=== PATIENT | female | born 1935 | race Caucasian/White ===

== ENCOUNTER 2020-08-16 12:37 | Observation (INO) | payer MEDICARE, BC ==
[2020-08-16 13:24] LABS: #Monocytes 1.1 10x3/uL (0.0-1.1); #Neutrophils 7.4 10x3/uL (1.5-8.4); %Basophils 0.1 % (0.0-2.0); %Eosinophils 0.2 % (0.0-6.0); %Monocytes 11.7 % (0.0-10.0); %Neutrophils 78.4 % (40.0-75.0); Hemoglobin 8.4 g/dL (12.0-15.5); Mean Corpuscular HGB CONC 30.9 g/dL (32.0-36.0); Mean Corpuscular Hemoglobin 24.2 pg (27.0-33.0); Mean Corpuscular Volume 78.4 fl (81.6-98.3); Platelet Count 335 10x3/uL (150-450); RBC Distribution Width 15.9 % (11.5-14.5); Red Blood Cell (RBC) Count 3.47 10x6/uL (3.90-5.03); White Blood Cell (WBC) Count 9.5 10x3/uL (3.5-10.5)
[2020-08-16 13:37] LABS: ALT (SGPT) 35 U/L (8-55); AST (SGOT) 13 U/L (5-34); Albumin 3.7 g/dL (3.4-4.8); Alkaline Phosphatase 100 U/L (40-110); Anion Gap 15 mmol/L (10-20); BUN (Urea Nitrogen) 34 mg/dL (9.8-20.1); Bilirubin, Total 0.5 mg/dL (0.2-1.2); CK (CPK) 37 U/L (29-168); Calc. Creatinine Clearance 0 mL/min (70-130); Calcium 8.5 mg/dL (7.8-10.44); Carbon Dioxide 22 mmol/L (23-31); Chloride 102 mmol/L (98-107); Globulin 2.4 g/dL (2.4-3.5); Glucose 137 mg/dL (83-110); Potassium 4.5 mmol/L (3.5-5.1); Protein, Total 6.1 g/dL (5.8-8.1); Sodium 134 mmol/L (136-145)
[2020-08-16] MEDS ORDERED: Nitroglycerin 2% Ointment 1 INCH/1 GM Packet ONE (13:45)
[2020-08-16] MEDS ORDERED: Aspirin Chewable 81 MG TAB ONE (13:45)
[2020-08-16 14:00] LABS: CKMB 1.5 ng/mL (0-6.6)
[2020-08-16 15:10] LABS: Bilirubin Neg (Negative); Blood, Urine Negative (Negative); Clarity Slightly Cloudy (Clear); Glucose, Urine (Dipstick) Normal (Negative); Ketone, Urine Negative (Negative); Leukocyte 25 (Negative); Nitrite Negative (Negative); Protein, Urine (Dipstick) Negative (Neg-Trace); Specific Gravity, Urine 1.005 (1.002-1.036); Urobilinogen Normal mg/dL (Less than 2)
[2020-08-16 15:23] LABS: RBC/HPF 0-3 HPF (0-3)
[2020-08-16 15:25] LABS: Bacteria/HPF 3+ HPF (None Seen); Squamous Epithelial 0-3 HPF (0-3); WBC/HPF 0-3 HPF (0-3)
[2020-08-16 16:52] LABS: Troponin I 0.027 ng/mL (< 0.028)
[2020-08-16] MEDS ORDERED: Furosemide 20 MG/2 ML VIAL SLOW IVP SCH (18:30)
[2020-08-16] MEDS ORDERED: Dextrose 5% in Water 1,000 ML IV PRN (18:39)
[2020-08-16] MEDS ORDERED: Dextrose 50% Abboject 50 ML SYRINGE SLOW IVP PRN (18:39)
[2020-08-16] MEDS ORDERED: HumaLOG 300 UNITS/3 ML VIAL SC PRN (18:39)
[2020-08-16] MEDS ORDERED: Furosemide 40 MG/4 ML VIAL ONE (18:42)
[2020-08-16 19:31] LABS: Troponin I 0.027 ng/mL (< 0.028)
[2020-08-16] MEDS: Apixaban 5 MG TAB PO SCH (20:58)
[2020-08-17 05:33] LABS: Iron 14 ug/dL (50-170); Iron Binding Capacity, Total 359 mcg/dL (265-497)
[2020-08-17 05:34] LABS: ALT (SGPT) 27 U/L (8-55); AST (SGOT) 12 U/L (5-34); Albumin 3.4 g/dL (3.4-4.8); Alkaline Phosphatase 89 U/L (40-110); Anion Gap 13 mmol/L (10-20); BUN (Urea Nitrogen) 25 mg/dL (9.8-20.1); Bilirubin, Total 0.5 mg/dL (0.2-1.2); Calc. Creatinine Clearance 46 mL/min (70-130); Calcium 8.3 mg/dL (7.8-10.44); Carbon Dioxide 23 mmol/L (23-31); Chloride 103 mmol/L (98-107); Globulin 2.3 g/dL (2.4-3.5); Glucose 99 mg/dL (83-110); Iron Binding Capacity, Total 365 mcg/dL (265-497); Magnesium 2.3 mg/dL (1.6-2.6); Potassium 4.1 mmol/L (3.5-5.1); Protein, Total 5.7 g/dL (5.8-8.1); Sodium 135 mmol/L (136-145)
[2020-08-17 05:51] LABS: #Eosinphils 0.1 10x3/uL (0.0-0.5); #Monocytes 0.9 10x3/uL (0.0-1.1); #Neutrophils 6.3 10x3/uL (1.5-8.4); %Eosinophils 0.6 % (0.0-6.0); %Neutrophils 75.8 % (40.0-75.0); Ferritin 43.95 ng/mL (10-291); Hemoglobin 7.8 g/dL (12.0-15.5); Mean Corpuscular Volume 77.5 fl (81.6-98.3); Mean Platelet Volume 10.6 fl (7.4-10.4); Platelet Count 314 10x3/uL (150-450); RBC Distribution Width 15.9 % (11.5-14.5); Red Blood Cell (RBC) Count 3.25 10x6/uL (3.90-5.03); Thyroid Stimulating Hormone 0.8375 uIU/mL (0.35-4.94); White Blood Cell (WBC) Count 8.4 10x3/uL (3.5-10.5)
[2020-08-17] MEDS: Furosemide 40 MG/4 ML VIAL SLOW IVP SCH ×2 (05:52→15:15)
[2020-08-17] MEDS ORDERED: ICOSAPENT ETHYL 1 GM PO SCH (09:00)
[2020-08-17] MEDS: Aspirin 81 mg Enteric Coated Tablet PO SCH (09:43)
[2020-08-17] MEDS: Cholecalciferol (Vitamin D3) 400 UNITS TAB PO SCH (09:43)
[2020-08-17] MEDS: Amiodarone 200 MG TAB PO SCH ×2 (09:43→20:22)
[2020-08-17] MEDS: Carvedilol 12.5 MG TAB PO SCH ×2 (09:43→20:22)
[2020-08-17] MEDS: Apixaban 5 MG TAB PO SCH ×2 (09:45→20:22)
[2020-08-17] MEDS: Thyroid 60 MG TAB PO SCH (09:45)
[2020-08-17 12:57] LABS: SARS-CoV-2 PCR by NAA Not Detected (NotDetected)
[2020-08-17] MEDS: Pregabalin 75 MG CAP PO SCH (15:15)
[2020-08-17] MEDS ORDERED: Atorvastatin Calcium 10 MG TAB PO SCH (21:00)
[2020-08-18] MEDS: Pregabalin 75 MG CAP PO SCH (00:57)
[2020-08-18 03:47] VITALS: BMI 22.7
[2020-08-18 04:08] VITALS: TEMP 98.2
[2020-08-18] MEDS: Furosemide 40 MG/4 ML VIAL SLOW IVP SCH (05:32)
[2020-08-18 06:05] LABS: #Eosinphils 0.1 10x3/uL (0.0-0.5); #Neutrophils 6.4 10x3/uL (1.5-8.4); %Basophils 0.2 % (0.0-2.0); %Eosinophils 0.9 % (0.0-6.0); %Lymphocytes 12.7 % (18.0-47.0); %Monocytes 11.6 % (0.0-10.0); Hemoglobin 9.1 g/dL (12.0-15.5); Mean Corpuscular Hemoglobin 23.5 pg (27.0-33.0); Mean Corpuscular Volume 78.1 fl (81.6-98.3); Mean Platelet Volume 10.3 fl (7.4-10.4); Platelet Count 359 10x3/uL (150-450); Red Blood Cell (RBC) Count 3.88 10x6/uL (3.90-5.03); White Blood Cell (WBC) Count 8.7 10x3/uL (3.5-10.5)
[2020-08-18 06:22] LABS: ALT (SGPT) 27 U/L (8-55); AST (SGOT) 15 U/L (5-34); Albumin 3.6 g/dL (3.4-4.8); Alkaline Phosphatase 95 U/L (40-110); Anion Gap 14 mmol/L (10-20); BUN (Urea Nitrogen) 22 mg/dL (9.8-20.1); Bilirubin, Total 0.7 mg/dL (0.2-1.2); Calc. Creatinine Clearance 48 mL/min (70-130); Calcium 8.8 mg/dL (7.8-10.44); Carbon Dioxide 24 mmol/L (23-31); Chloride 101 mmol/L (98-107); Globulin 2.6 g/dL (2.4-3.5); Glucose 119 mg/dL (83-110); Potassium 3.6 mmol/L (3.5-5.1); Protein, Total 6.2 g/dL (5.8-8.1); Sodium 135 mmol/L (136-145)
[2020-08-18] MEDS: Amiodarone 200 MG TAB PO SCH (10:07)
[2020-08-18] MEDS: Thyroid 60 MG TAB PO SCH (10:07)
[2020-08-18] MEDS: Carvedilol 12.5 MG TAB PO SCH (10:08)
[2020-08-18] MEDS: Cholecalciferol (Vitamin D3) 400 UNITS TAB PO SCH (10:08)
[2020-08-18] MEDS: Aspirin 81 mg Enteric Coated Tablet PO SCH (10:08)
[2020-08-18] MEDS: Apixaban 5 MG TAB PO SCH (10:08)
[2020-08-18 11:30] VITALS: BP 102/45
[2020-08-18] MEDS ORDERED: Furosemide 20 MG TAB PO SCH (14:00)
== END 2020-08-18 14:15 | disposition home or self-care (01) ==
LOC: CSHERS 12:37 → CSHTELE 20:16
PROVIDERS: ADMIT Family Medicine; ATTEND Family Medicine
DX: I11.0 Hypertensive heart disease with heart failure (principal); I50.33 Acute on chronic diastolic (congestive) heart failure; I48.0 Paroxysmal atrial fibrillation; I35.0 Nonrheumatic aortic (valve) stenosis; Z79.899 Other long term (current) drug therapy; Z79.82 Long term (current) use of aspirin; E11.9 Type 2 diabetes mellitus without complications; Z20.822 Contact with and (suspected) exposure to COVID-19
CPT/HCPCS: 71045; 71275; 80053 ×2; 82550; 82553; 82728; 82962 ×3; 83540; 83550; 83605; 83735; 83880; 84484 ×2; 85025 ×2; 85379; 93005; 94760; 96374; 96376 ×2; 97116 ×2; 97139; 97530; 99285; G0378 ×4; U0003; U0005; 36415; 36416; 81003; 81015; 82270; 84443; 87635; J1815; J1940; J7620

== ENCOUNTER 2020-08-26 19:17 | Inpatient (IN) | payer MEDICARE, BC ==
[2020-08-26 20:26] LABS: #Eosinphils 0.1 10x3/uL (0.0-0.5); #Monocytes 0.7 10x3/uL (0.0-1.1); #Neutrophils 6.1 10x3/uL (1.5-8.4); %Basophils 0.4 % (0.0-2.0); %Eosinophils 1.5 % (0.0-6.0); %Lymphocytes 13.6 % (18.0-47.0); %Neutrophils 75.8 % (40.0-75.0); Hemoglobin 8.6 g/dL (12.0-15.5); Mean Corpuscular HGB CONC 29.6 g/dL (32.0-36.0); Mean Corpuscular Hemoglobin 23.1 pg (27.0-33.0); Mean Platelet Volume 11.2 fl (7.4-10.4); Platelet Count 220 10x3/uL (150-450); RBC Distribution Width 15.9 % (11.5-14.5); Red Blood Cell (RBC) Count 3.73 10x6/uL (3.90-5.03); White Blood Cell (WBC) Count 8.1 10x3/uL (3.5-10.5)
[2020-08-26 20:41] LABS: ALT (SGPT) 31 U/L (8-55); AST (SGOT) 15 U/L (5-34); Albumin 3.6 g/dL (3.4-4.8); Alkaline Phosphatase 141 U/L (40-110); Anion Gap 16 mmol/L (10-20); BUN (Urea Nitrogen) 45 mg/dL (9.8-20.1); Bilirubin, Total 0.4 mg/dL (0.2-1.2); Calc. Creatinine Clearance 0 mL/min (70-130); Calcium 8.5 mg/dL (7.8-10.44); Carbon Dioxide 20 mmol/L (23-31); Chloride 98 mmol/L (98-107); Globulin 2.5 g/dL (2.4-3.5); Glucose 180 mg/dL (83-110); Potassium 5.6 mmol/L (3.5-5.1); Protein, Total 6.1 g/dL (5.8-8.1); Sodium 128 mmol/L (136-145)
[2020-08-26] MEDS ORDERED: Furosemide 40 MG/4 ML VIAL ONE (21:35)
[2020-08-26] MEDS ORDERED: Senokot S 8.6-50 MG TAB PO PRN (22:29)
[2020-08-26] MEDS ORDERED: Dextrose 5% in Water 1,000 ML IV PRN (22:29)
[2020-08-26] MEDS ORDERED: Guaifenesin DM 100-10/5 ML UDCUP PO PRN (22:29)
[2020-08-26] MEDS ORDERED: Calcium Carbonate 500 MG ChewTAB PO PRN (22:29)
[2020-08-26] MEDS ORDERED: HumaLOG 300 UNITS/3 ML VIAL SC PRN (22:29)
[2020-08-26] MEDS ORDERED: Acetaminophen 325 MG TAB PO PRN (22:29)
[2020-08-26] MEDS ORDERED: Dextrose 50% Abboject 50 ML SYRINGE SLOW IVP PRN (22:29)
[2020-08-27] MEDS ORDERED: Carvedilol 3.125 MG TAB PO SCH (01:00)
[2020-08-27] MEDS ORDERED: Amiodarone 200 MG TAB PO SCH (01:00)
[2020-08-27 01:03] VITALS: BMI 21.9
[2020-08-27 01:46] LABS: Bilirubin Neg (Negative); Blood, Urine Negative (Negative); Clarity Clear (Clear); Glucose, Urine (Dipstick) Normal (Negative); Ketone, Urine Negative (Negative); Leukocyte Negative (Negative); Nitrite Negative (Negative); Protein, Urine (Dipstick) Negative (Neg-Trace); Specific Gravity, Urine 1.005 (1.002-1.036); Urobilinogen Normal mg/dL (Less than 2)
[2020-08-27] MEDS: Enoxaparin Sodium 60 MG/0.6 ML SYRINGE SC SCH ×2 (01:47→14:19)
[2020-08-27 01:51] LABS: Urine Culture Reflex No No
[2020-08-27 01:55] LABS: Bacteria/HPF 1+ HPF (None Seen); RBC/HPF 0-3 HPF (0-3); Squamous Epithelial 0-3 HPF (0-3); WBC/HPF 0-3 HPF (0-3)
[2020-08-27 06:19] LABS: Anion Gap 15 mmol/L (10-20); BUN (Urea Nitrogen) 38 mg/dL (9.8-20.1); Calc. Creatinine Clearance 39 mL/min (70-130); Calcium 8.7 mg/dL (7.8-10.44); Carbon Dioxide 27 mmol/L (23-31); Chloride 100 mmol/L (98-107); Glucose 105 mg/dL (83-110); Hemoglobin 8.1 g/dL (12.0-15.5); Iron 15 ug/dL (50-170); Iron Binding Capacity, Total 400 mcg/dL (265-497); Mean Corpuscular HGB CONC 30.2 g/dL (32.0-36.0); Mean Corpuscular Hemoglobin 22.9 pg (27.0-33.0); Mean Corpuscular Volume 75.7 fl (81.6-98.3); Mean Platelet Volume 11.4 fl (7.4-10.4); Platelet Count 198 10x3/uL (150-450); Potassium 4.3 mmol/L (3.5-5.1); Red Blood Cell (RBC) Count 3.54 10x6/uL (3.90-5.03); Sodium 138 mmol/L (136-145); White Blood Cell (WBC) Count 5.9 10x3/uL (3.5-10.5)
[2020-08-27 06:50] LABS: Band 1 % (5-11); Eosinophils 2 % (0-10); Lymphocytes 15 % (21-51); Monocytes 4 % (0-10); Neutrophil 77 % (42-75); Reactive Lymphocytes 1 % (0-10)
[2020-08-27 06:51] LABS: Elliptocytes SLIGHT = 2-5 cells (100X) (0-1/hpf); Hypochromia SLIGHT = 6-15 cells (100X) (0-5/hpf); MDiff Complete? YES; Platelet Morphology Comment Appears Adequate; Thyroid Stimulating Hormone 2.9021 uIU/mL (0.35-4.94)
[2020-08-27 06:52] LABS: Anisocytosis SLIGHT = 6-15 cells (100X) (0-5/hpf); Tear Drops SLIGHT = 2-5 cells (100X) (0-1/hpf)
[2020-08-27] MEDS: Amiodarone 200 MG TAB PO SCH ×2 (08:20→20:55)
[2020-08-27] MEDS: Thyroid 60 MG TAB PO SCH (08:20)
[2020-08-27] MEDS: Pregabalin 75 MG CAP PO SCH ×2 (08:20→20:51)
[2020-08-27] MEDS: Carvedilol 12.5 MG TAB PO SCH ×2 (08:21→20:54)
[2020-08-27] MEDS: Magnesium Oxide 400 MG TAB PO SCH (08:21)
[2020-08-27] MEDS: Multivitamin W/ Minerals 1 TAB PO SCH (08:21)
[2020-08-27] MEDS: Cholecalciferol (Vitamin D3) 400 UNITS TAB PO SCH (08:21)
[2020-08-27] MEDS: Furosemide 20 MG/2 ML VIAL SLOW IVP SCH (08:21)
[2020-08-27] MEDS: Aspirin 81 mg Enteric Coated Tablet PO SCH (08:21)
[2020-08-27] MEDS ORDERED: Apixaban 5 MG TAB PO SCH (09:00)
[2020-08-27] MEDS ORDERED: Icosapent Ethyl [Vascepa] 1 GM Capsule PO SCH (09:00)
[2020-08-27 09:34] LABS: Ferritin 40.19 ng/mL (10-291)
[2020-08-27] MEDS ORDERED: Communication Order-Pharmacy FS SCH (10:15)
[2020-08-27 13:50] LABS: SARS-CoV-2 PCR by NAA Not Detected (NotDetected)
[2020-08-27] MEDS: Atorvastatin Calcium 10 MG TAB PO SCH (20:54)
[2020-08-28 06:16] LABS: ALT (SGPT) 25 U/L (8-55); AST (SGOT) 12 U/L (5-34); Albumin 3.2 g/dL (3.4-4.8); Alkaline Phosphatase 115 U/L (40-110); Anion Gap 12 mmol/L (10-20); BUN (Urea Nitrogen) 37 mg/dL (9.8-20.1); Bilirubin, Total 0.4 mg/dL (0.2-1.2); Calc. Creatinine Clearance 42 mL/min (70-130); Calcium 8.5 mg/dL (7.8-10.44); Carbon Dioxide 27 mmol/L (23-31); Chloride 102 mmol/L (98-107); Globulin 2.6 g/dL (2.4-3.5); Glucose 109 mg/dL (83-110); Potassium 3.4 mmol/L (3.5-5.1); Protein, Total 5.8 g/dL (5.8-8.1); Sodium 138 mmol/L (136-145)
[2020-08-28] MEDS: Aspirin 81 mg Enteric Coated Tablet PO SCH (06:17)
[2020-08-28] MEDS: Carvedilol 12.5 MG TAB PO SCH ×2 (06:17→20:36)
[2020-08-28] MEDS: Pregabalin 75 MG CAP PO SCH ×2 (06:17→20:35)
[2020-08-28] MEDS: Thyroid 60 MG TAB PO SCH (06:18)
[2020-08-28] MEDS: Amiodarone 200 MG TAB PO SCH ×2 (06:18→20:36)
[2020-08-28 07:29] LABS: INR-International Normal Ratio 1.1; PTT 28.8 sec (22.0-33.0)
[2020-08-28] MEDS: Cholecalciferol (Vitamin D3) 400 UNITS TAB PO SCH (07:30)
[2020-08-28] MEDS: Furosemide 20 MG/2 ML VIAL SLOW IVP SCH (07:30)
[2020-08-28] MEDS: Magnesium Oxide 400 MG TAB PO SCH (07:30)
[2020-08-28] MEDS: Multivitamin W/ Minerals 1 TAB PO SCH (07:31)
[2020-08-28 07:38] LABS: #Eosinphils 0.1 10x3/uL (0.0-0.5); #Monocytes 0.5 10x3/uL (0.0-1.1); #Neutrophils 3.1 10x3/uL (1.5-8.4); %Basophils 0.4 % (0.0-2.0); %Eosinophils 2.6 % (0.0-6.0); %Lymphocytes 16.7 % (18.0-47.0); %Monocytes 11.7 % (0.0-10.0); %Neutrophils 68.2 % (40.0-75.0); Hemoglobin 7.7 g/dL (12.0-15.5); Mean Corpuscular HGB CONC 30.2 g/dL (32.0-36.0); Mean Corpuscular Hemoglobin 23.1 pg (27.0-33.0); Mean Corpuscular Volume 76.6 fl (81.6-98.3); Mean Platelet Volume 10.9 fl (7.4-10.4); Platelet Count 173 10x3/uL (150-450); RBC Distribution Width 16.1 % (11.5-14.5); Red Blood Cell (RBC) Count 3.33 10x6/uL (3.90-5.03); White Blood Cell (WBC) Count 4.5 10x3/uL (3.5-10.5)
[2020-08-28] MEDS ORDERED: Potassium Chloride 10 MEQ TAB PO SCH (08:00)
[2020-08-28] MEDS ORDERED: Potassium Chloride 20 MEQ TAB PO SCH (09:00)
[2020-08-28] MEDS ORDERED: Heparin 10,000 UNITS/ 10 ML VIAL ONE (09:13)
[2020-08-28] MEDS ORDERED: Nitroglycerin 50 MG/250 ML BOT 250 ML ONE (09:13)
[2020-08-28] MEDS ORDERED: Adenosine 6 MG/2 ML VIAL ONE (09:14)
[2020-08-28] MEDS ORDERED: Verapamil 5 MG/2 ML VIAL ONE (09:14)
[2020-08-28] MEDS ORDERED: Bivalirudin 250 MG VIAL ONE (09:14)
[2020-08-28] MEDS ORDERED: Sodium Chloride 0.9% 1,000 ML ONE (09:15)
[2020-08-28] MEDS ORDERED: Fentanyl 100 MCG/2 ML VIAL ONE (09:15)
[2020-08-28] MEDS ORDERED: Midazolam HCl 2 mg/2 ml Vial ONE (09:15)
[2020-08-28] MEDS ORDERED: Lidocaine 1% PF 5 ML VIAL ONE (09:16)
[2020-08-28] MEDS ORDERED: Acetaminophen/Codeine 30-300mg Tablet PO PRN (10:34)
[2020-08-28] MEDS ORDERED: Nitroglycerin 0.4 MG TAB (25 Tab Bottle) SL PRN (10:34)
[2020-08-28] MEDS ORDERED: Sodium Chloride 0.9% 200 ML IV PRN (10:34)
[2020-08-28] MEDS ORDERED: Furosemide 20 MG/2 ML VIAL SLOW IVP SCH (11:30)
[2020-08-28 20:34] VITALS: BP 112/70; TEMP 98.4
[2020-08-28] MEDS: Atorvastatin Calcium 10 MG TAB PO SCH (20:35)
== END 2020-08-29 00:37 | disposition short-term general hospital (02) | DRG 286 ==
LOC: CSHERS 19:17 → CSHTELE 08-27 00:43
PROVIDERS: ADMIT Student in an Organized Health Care Education/Training Program; ATTEND Internal Medicine
PROC: 4A023N7 Measurement of Cardiac Sampling and Pressure, Left Heart, Percutaneous Approach (ICD-10-PCS; principal; 2020-08-28)
PROC: B2151ZZ Fluoroscopy of Left Heart using Low Osmolar Contrast (ICD-10-PCS; 2020-08-28)
PROC: B2111ZZ Fluoroscopy of Multiple Coronary Arteries using Low Osmolar Contrast (ICD-10-PCS; 2020-08-28)
PROC: 30233N1 Transfusion of Nonautologous Red Blood Cells into Peripheral Vein, Percutaneous Approach (ICD-10-PCS; 2020-08-28)
DX: I35.0 Nonrheumatic aortic (valve) stenosis (principal); I50.33 Acute on chronic diastolic (congestive) heart failure; I13.0 Hypertensive heart and chronic kidney disease with heart failure and stage 1 through stage 4 chronic kidney disease, or unspecified chronic kidney disease; N17.9 Acute kidney failure, unspecified; E87.1 Hypo-osmolality and hyponatremia; I48.0 Paroxysmal atrial fibrillation; E11.22 Type 2 diabetes mellitus with diabetic chronic kidney disease; N18.2 Chronic kidney disease, stage 2 (mild); E87.5 Hyperkalemia; R33.9 Retention of urine, unspecified; D50.9 Iron deficiency anemia, unspecified; Z95.0 Presence of cardiac pacemaker; E11.40 Type 2 diabetes mellitus with diabetic neuropathy, unspecified; E03.9 Hypothyroidism, unspecified; E78.5 Hyperlipidemia, unspecified; Z88.5 Allergy status to narcotic agent; Z88.0 Allergy status to penicillin; Z88.8 Allergy status to other drugs, medicaments and biological substances; Z91.040 Latex allergy status; Z20.822 Contact with and (suspected) exposure to COVID-19
CPT/HCPCS: 36415; 36416; 36430; 71045; 80048; 80053; 81001; 82274; 82728; 83540; 83550; 83880; 84443; 84484; 85007; 85025; 85027; 85610; 85730; 86850; 86900; 86901; 87077; 87086; 87186; 87635; 92978; 93005; 93458; 96374; 96375; C1753; J0153; J0583; J1644; J1650; J1940; J2250; J3010; J7050; P9016; U0003; U0005

== ENCOUNTER 2021-05-02 20:19 | Inpatient (IN) | payer MEDICARE, BC ==
[2021-05-02 20:58] LABS: #Monocytes 1.4 10x3/uL (0.0-1.1); %Basophils 0.1 % (0.0-2.0); %Eosinophils 0.1 % (0.0-6.0); %Lymphocytes 6.8 % (18.0-47.0); %Monocytes 12.3 % (0.0-10.0); %Neutrophils 79.8 % (40.0-75.0); Hemoglobin 11.1 g/dL (12.0-15.5); Mean Corpuscular HGB CONC 31.9 g/dL (32.0-36.0); Mean Corpuscular Hemoglobin 26.7 pg (27.0-33.0); Mean Corpuscular Volume 83.9 fl (81.6-98.3); Platelet Count 169 10x3/uL (150-450); RBC Distribution Width 15.9 % (11.5-14.5); Red Blood Cell (RBC) Count 4.15 10x6/uL (3.90-5.03); White Blood Cell (WBC) Count 11.3 10x3/uL (3.5-10.5)
[2021-05-02 21:05] LABS: Bilirubin Neg (Negative); Blood, Urine Negative (Negative); Clarity Clear (Clear); Glucose, Urine (Dipstick) Normal (Negative); Ketone, Urine Negative (Negative); Leukocyte 25 (Negative); Nitrite Negative (Negative); Protein, Urine (Dipstick) 15 mg/dl (Neg-Trace); Urobilinogen Normal mg/dL (Less than 2)
[2021-05-02 21:10] LABS: ALT (SGPT) 67 U/L (8-55); AST (SGOT) 29 U/L (5-34); Albumin 3.8 g/dL (3.4-4.8); Alkaline Phosphatase 115 U/L (40-110); Anion Gap 14 mmol/L (10-20); BUN (Urea Nitrogen) 35 mg/dL (9.8-20.1); Bilirubin, Total 0.4 mg/dL (0.2-1.2); Calc. Creatinine Clearance 0 mL/min (70-130); Calcium 8.5 mg/dL (7.8-10.44); Carbon Dioxide 20 mmol/L (23-31); Chloride 101 mmol/L (98-107); Globulin 2.5 g/dL (2.4-3.5); Glucose 187 mg/dL (83-110); Potassium 5.3 mmol/L (3.5-5.1); Protein, Total 6.3 g/dL (5.8-8.1); Sodium 130 mmol/L (136-145)
[2021-05-02 21:21] LABS: RBC/HPF 0-3 HPF (0-3)
[2021-05-02 21:22] LABS: Bacteria/HPF 3+ HPF (None Seen); Squamous Epithelial 0-3 HPF (0-3)
[2021-05-02] MEDS ORDERED: Furosemide 40 MG/4 ML VIAL ONE (22:47)
[2021-05-02] MEDS ORDERED: Aspirin 325 MG TAB ONE (22:47)
[2021-05-02] MEDS ORDERED: cefTRIAXone\\ROCEPHIN 1 GM VIAL ONE (22:48)
[2021-05-02] MEDS ORDERED: Nitroglycerin 2% Ointment 1 INCH/1 GM Packet ONE (23:30)
[2021-05-02] MEDS ORDERED: Guaifenesin DM 100-10/5 ML UDCUP PO PRN (23:35)
[2021-05-02] MEDS ORDERED: Senokot S 8.6-50 MG TAB PO PRN (23:35)
[2021-05-02] MEDS ORDERED: Calcium Carbonate 500 MG ChewTAB PO PRN (23:35)
[2021-05-02] MEDS ORDERED: Acetaminophen 325 MG TAB PO PRN (23:35)
[2021-05-02] MEDS ORDERED: Nitroglycerin 0.4 MG TAB (25 Tab Bottle) SL PRN (23:38)
[2021-05-02] MEDS ORDERED: hydrALAZINE 20 MG/ML VIAL SLOW IVP PRN (23:39)
[2021-05-02] MEDS ORDERED: Polyethylene Glycol 3350 17 GM Packet PO PRN (23:39)
[2021-05-03 02:07] VITALS: BMI 21.2
[2021-05-03 04:54] LABS: Anion Gap 14 mmol/L (10-20); BUN (Urea Nitrogen) 27 mg/dL (9.8-20.1); Calc. Creatinine Clearance 49 mL/min (70-130); Calcium 8.4 mg/dL (7.8-10.44); Carbon Dioxide 23 mmol/L (23-31); Chloride 100 mmol/L (98-107); Glucose 143 mg/dL (83-110); Magnesium 2.1 mg/dL (1.6-2.6); Potassium 3.8 mmol/L (3.5-5.1); Sodium 133 mmol/L (136-145)
[2021-05-03 05:04] LABS: Free T4 (Free Thyroxine) 0.92 ng/dL (0.70-1.48); Thyroid Stimulating Hormone 5.416 uIU/mL (0.35-4.94)
[2021-05-03] MEDS ORDERED: Metoprolol Tartrate 25 MG TAB PO SCH (05:15)
[2021-05-03] MEDS: Furosemide 20 MG/2 ML VIAL SLOW IVP SCH ×2 (05:29→13:56)
[2021-05-03 07:45] LABS: #Monocytes 1.1 10x3/uL (0.0-1.1); #Neutrophils 7.8 10x3/uL (1.5-8.4); %Eosinophils 0.1 % (0.0-6.0); %Lymphocytes 7.8 % (18.0-47.0); %Monocytes 11.6 % (0.0-10.0); %Neutrophils 79.8 % (40.0-75.0); Hemoglobin 11.3 g/dL (12.0-15.5); Mean Corpuscular HGB CONC 32.9 g/dL (32.0-36.0); Mean Corpuscular Hemoglobin 27.2 pg (27.0-33.0); Mean Corpuscular Volume 82.7 fl (81.6-98.3); Mean Platelet Volume 10.8 fl (7.4-10.4); Platelet Count 63 10x3/uL (150-450); RBC Distribution Width 15.8 % (11.5-14.5); Red Blood Cell (RBC) Count 4.15 10x6/uL (3.90-5.03); White Blood Cell (WBC) Count 9.7 10x3/uL (3.5-10.5)
[2021-05-03] MEDS ORDERED: Potassium Chloride 20 MEQ TAB PO SCH (08:00)
[2021-05-03] MEDS: Carvedilol 25 MG TAB PO SCH ×2 (08:47→17:26)
[2021-05-03] MEDS: Cephalexin 500 MG CAP PO SCH ×2 (08:48→18:51)
[2021-05-03] MEDS ORDERED: Pantoprazole 40 MG GRANULES PACKET PO SCH (09:00)
[2021-05-03] MEDS ORDERED: Aspirin 81 mg Enteric Coated Tablet PO SCH (09:00)
[2021-05-03] MEDS ORDERED: Magnesium Oxide 400 MG TAB PO SCH (09:00)
[2021-05-03] MEDS ORDERED: Thyroid 60 MG TAB PO SCH (09:00)
[2021-05-03] MEDS ORDERED: Icosapent Ethyl 1 GM CAPSULE PO SCH (09:00)
[2021-05-03] MEDS ORDERED: LACTINEX 1 TAB PO SCH (09:00)
[2021-05-03] MEDS ORDERED: Cholecalciferol (Vitamin D3) 400 UNITS TAB PO SCH (09:00)
[2021-05-03] MEDS ORDERED: Apixaban 2.5 MG TAB PO SCH (09:00)
[2021-05-03] MEDS ORDERED: Amiodarone 200 MG TAB PO SCH (09:00)
[2021-05-03 15:45] VITALS: BP 152/66; TEMP 97.5
[2021-05-03 19:40] LABS: SARS-CoV-2 PCR by NAA Not Detected (NotDetected)
[2021-05-03] MEDS ORDERED: Melatonin 3 MG TAB PO SCH (21:00)
== END 2021-05-03 19:02 | disposition home or self-care (01) | DRG 291 ==
LOC: CSHERS 20:19 → CSHTELE 05-03 01:19
PROVIDERS: ADMIT Student in an Organized Health Care Education/Training Program; ATTEND Nurse Practitioner Family
DX: I13.0 Hypertensive heart and chronic kidney disease with heart failure and stage 1 through stage 4 chronic kidney disease, or unspecified chronic kidney disease (principal); I50.33 Acute on chronic diastolic (congestive) heart failure; N39.0 Urinary tract infection, site not specified; E87.1 Hypo-osmolality and hyponatremia; Z20.822 Contact with and (suspected) exposure to COVID-19; I16.0 Hypertensive urgency; E78.5 Hyperlipidemia, unspecified; E87.5 Hyperkalemia; E11.22 Type 2 diabetes mellitus with diabetic chronic kidney disease; N18.2 Chronic kidney disease, stage 2 (mild); I35.0 Nonrheumatic aortic (valve) stenosis; E11.40 Type 2 diabetes mellitus with diabetic neuropathy, unspecified; K21.9 Gastro-esophageal reflux disease without esophagitis; E03.9 Hypothyroidism, unspecified; D63.1 Anemia in chronic kidney disease; I25.10 Atherosclerotic heart disease of native coronary artery without angina pectoris; D69.6 Thrombocytopenia, unspecified; I48.0 Paroxysmal atrial fibrillation; Z95.0 Presence of cardiac pacemaker; Z95.2 Presence of prosthetic heart valve; Z88.0 Allergy status to penicillin; Z91.040 Latex allergy status; Z88.8 Allergy status to other drugs, medicaments and biological substances; Z79.01 Long term (current) use of anticoagulants; Z79.82 Long term (current) use of aspirin; Z79.899 Other long term (current) drug therapy; Z90.710 Acquired absence of both cervix and uterus; Z90.49 Acquired absence of other specified parts of digestive tract; Z90.89 Acquired absence of other organs; Z88.1 Allergy status to other antibiotic agents
CPT/HCPCS: 36415; 36416; 71045; 80048; 80053; 81003; 81015; 83735; 83880; 84439; 84443; 84484; 85025; 93005; 93306; 96365; 96375; J0696; J1940; U0003; U0005

== ENCOUNTER 2021-06-05 17:26 | Inpatient (IN) | payer MEDICARE, BC ==
[2021-06-05 18:31] LABS: ALT (SGPT) 82 U/L (8-55); AST (SGOT) 49 U/L (5-34); Albumin 3.4 g/dL (3.4-4.8); Alkaline Phosphatase 95 U/L (40-110); Anion Gap 10 mmol/L (10-20); BUN (Urea Nitrogen) 17 mg/dL (9.8-20.1); Bilirubin, Total 0.7 mg/dL (0.2-1.2); Calc. Creatinine Clearance 0 mL/min (70-130); Calcium 8.9 mg/dL (7.8-10.44); Carbon Dioxide 26 mmol/L (23-31); Chloride 94 mmol/L (98-107); Globulin 3.3 g/dL (2.4-3.5); Glucose 121 mg/dL (83-110); Potassium 4.4 mmol/L (3.5-5.1); Protein, Total 6.7 g/dL (5.8-8.1); Sodium 126 mmol/L (136-145)
[2021-06-05 18:35] LABS: #Basophils 0.1 10x3/uL (0.0-0.2); #Eosinphils 0.1 10x3/uL (0.0-0.5); #Monocytes 0.9 10x3/uL (0.0-1.1); #Neutrophils 6.9 10x3/uL (1.5-8.4); %Basophils 0.6 % (0.0-2.0); %Eosinophils 1.2 % (0.0-6.0); %Lymphocytes 6.6 % (18.0-47.0); %Monocytes 10.7 % (0.0-10.0); %Neutrophils 79.4 % (40.0-75.0); Hemoglobin 9.9 g/dL (12.0-15.5); Mean Corpuscular HGB CONC 31.9 g/dL (32.0-36.0); Mean Corpuscular Hemoglobin 26.6 pg (27.0-33.0); Mean Corpuscular Volume 83.3 fl (81.6-98.3); Mean Platelet Volume 12.5 fl (7.4-10.4); RBC Distribution Width 15.2 % (11.5-14.5); Red Blood Cell (RBC) Count 3.72 10x6/uL (3.90-5.03); White Blood Cell (WBC) Count 8.6 10x3/uL (3.5-10.5)
[2021-06-05 19:07] LABS: Platelet Clumps MODERATE; Platelet Count 161 10x3/uL (150-450); Platelet Morphology Comment Appears Adequate; RBC Morphology Normal
[2021-06-05] MEDS ORDERED: Nitroglycerin 2% Ointment 1 INCH/1 GM Packet ONE (19:35)
[2021-06-05] MEDS ORDERED: Furosemide 40 MG/4 ML VIAL ONE (19:35)
[2021-06-05 21:01] LABS: SARS-CoV-2 NAA Rapid Test Not Detected (NotDetected)
[2021-06-05 22:35] LABS: Bilirubin Neg (Negative); Blood, Urine Negative (Negative); Clarity Clear (Clear); Glucose, Urine (Dipstick) Normal (Negative); Ketone, Urine Negative (Negative); Leukocyte Negative (Negative); Nitrite Negative (Negative); Protein, Urine (Dipstick) Negative (Neg-Trace); Urobilinogen Normal mg/dL (Less than 2)
[2021-06-05] MEDS ORDERED: Melatonin 3 MG TAB PO PRN (23:18)
[2021-06-06 00:11] LABS: Magnesium 1.5 mg/dL (1.6-2.6)
[2021-06-06 00:15] LABS: Troponin I 0.022 ng/mL (< 0.028)
[2021-06-06] MEDS ORDERED: Potassium Chloride 20 MEQ TAB PO SCH ×2 (02:00→09:00)
[2021-06-06] MEDS ORDERED: hydrALAZINE 20 MG/ML VIAL SLOW IVP SCH (03:00)
[2021-06-06 05:33] LABS: Anion Gap 14 mmol/L (10-20); BUN (Urea Nitrogen) 12 mg/dL (9.8-20.1); Calc. Creatinine Clearance 58 mL/min (70-130); Calcium 8.3 mg/dL (7.8-10.44); Carbon Dioxide 23 mmol/L (23-31); Chloride 95 mmol/L (98-107); Glucose 127 mg/dL (83-110); Potassium 3.4 mmol/L (3.5-5.1); Sodium 129 mmol/L (136-145)
[2021-06-06 05:38] LABS: #Eosinphils 0.1 10x3/uL (0.0-0.5); %Basophils 0.3 % (0.0-2.0); %Eosinophils 0.5 % (0.0-6.0); %Lymphocytes 5.6 % (18.0-47.0); %Monocytes 9.9 % (0.0-10.0); Hemoglobin 9.3 g/dL (12.0-15.5); Mean Corpuscular Hemoglobin 26.9 pg (27.0-33.0); Mean Corpuscular Volume 81.5 fl (81.6-98.3); RBC Distribution Width 15.1 % (11.5-14.5); Red Blood Cell (RBC) Count 3.46 10x6/uL (3.90-5.03); White Blood Cell (WBC) Count 9.7 10x3/uL (3.5-10.5)
[2021-06-06 05:41] LABS: Troponin I 0.019 ng/mL (< 0.028)
[2021-06-06] MEDS ORDERED: Nitroglycerin 2% Ointment 1 INCH/1 GM Packet TOP SCH (06:00)
[2021-06-06] MEDS ORDERED: Furosemide 40 MG/4 ML VIAL SLOW IVP SCH (06:00)
[2021-06-06] MEDS ORDERED: Carvedilol 25 MG TAB PO SCH (08:00)
[2021-06-06] MEDS: Furosemide 40 MG/4 ML VIAL SLOW IVP SCH (08:41)
[2021-06-06] MEDS: Magnesium 2 GM/50 ML 2 GM in Premix Bag 1 BAG IVPB SCH ×2 (08:41→11:26)
[2021-06-06] MEDS: Sotalol HCl 80 MG TAB PO SCH ×2 (08:42→21:58)
[2021-06-06] MEDS: Fish Oil 1,000 MG CAP PO SCH ×2 (08:42→21:46)
[2021-06-06] MEDS: Apixaban 2.5 MG TAB PO SCH ×2 (08:42→21:46)
[2021-06-06] MEDS: Lisinopril 5 MG TAB PO SCH (08:42)
[2021-06-06] MEDS: Potassium Chloride 20 MEQ TAB PO SCH (08:43)
[2021-06-06] MEDS ORDERED: Lisinopril 2.5 MG TAB PO SCH (09:00)
[2021-06-06] MEDS ORDERED: Amiodarone 200 MG TAB PO SCH (09:00)
[2021-06-06 09:44] LABS: Platelet Count 230 10x3/uL (150-450)
[2021-06-06] MEDS: Aspirin 81 mg Enteric Coated Tablet PO SCH (11:26)
[2021-06-06 11:57] LABS: Glucose 181 mg/dL (83-110)
[2021-06-06 15:31] LABS: SARS-CoV-2 PCR by NAA Not Detected (NotDetected)
[2021-06-06 17:47] LABS: Glucose 161 mg/dL (83-110)
[2021-06-06] MEDS ORDERED: Atorvastatin Calcium 10 MG TAB PO SCH (21:00)
[2021-06-06 22:11] LABS: Glucose 122 mg/dL (83-110)
[2021-06-07 05:01] LABS: Troponin I 0.013 ng/mL (< 0.028)
[2021-06-07 05:11] LABS: Anion Gap 13 mmol/L (10-20); BUN (Urea Nitrogen) 19 mg/dL (9.8-20.1); Calc. Creatinine Clearance 50 mL/min (70-130); Carbon Dioxide 26 mmol/L (23-31); Chloride 94 mmol/L (98-107); Glucose 135 mg/dL (83-110); Potassium 3.9 mmol/L (3.5-5.1); Sodium 129 mmol/L (136-145)
[2021-06-07 07:39] VITALS: BMI 20.9
[2021-06-07] MEDS: Aspirin 81 mg Enteric Coated Tablet PO SCH (08:23)
[2021-06-07] MEDS: Sotalol HCl 80 MG TAB PO SCH (08:23)
[2021-06-07] MEDS: Furosemide 40 MG/4 ML VIAL SLOW IVP SCH (08:23)
[2021-06-07] MEDS: Fish Oil 1,000 MG CAP PO SCH (08:23)
[2021-06-07] MEDS: Lisinopril 5 MG TAB PO SCH (08:23)
[2021-06-07] MEDS: Apixaban 2.5 MG TAB PO SCH (08:23)
[2021-06-07] MEDS: Potassium Chloride 20 MEQ TAB PO SCH (08:25)
[2021-06-07] MEDS ORDERED: Lisinopril 5 MG TAB PO SCH (12:00)
[2021-06-07 13:23] VITALS: BP 149/65
[2021-06-07 13:40] VITALS: TEMP 98
[2021-06-08] MEDS ORDERED: Furosemide 20 MG TAB PO SCH (09:00)
[2021-06-08] MEDS ORDERED: Lisinopril 10 MG TAB PO SCH (09:00)
== END 2021-06-07 18:34 | disposition home health service (06) | DRG 291 ==
LOC: CSHERS 17:26 → CSHTELE 23:09 → INTOOBSV 23:09 → UNDOADMIN 06-06 01:47 → CSHTELE 06-06 01:47 → OBSVTOIN 06-06 12:46
PROVIDERS: ADMIT Family Medicine; ATTEND Nurse Practitioner Family
DX: I11.0 Hypertensive heart disease with heart failure (principal); I50.43 Acute on chronic combined systolic (congestive) and diastolic (congestive) heart failure; E87.1 Hypo-osmolality and hyponatremia; F05 Delirium due to known physiological condition; I48.0 Paroxysmal atrial fibrillation; Z20.822 Contact with and (suspected) exposure to COVID-19; E78.5 Hyperlipidemia, unspecified; I25.10 Atherosclerotic heart disease of native coronary artery without angina pectoris; D64.9 Anemia, unspecified; E03.9 Hypothyroidism, unspecified; E87.6 Hypokalemia; E83.42 Hypomagnesemia; Z95.0 Presence of cardiac pacemaker; Z79.01 Long term (current) use of anticoagulants; Z95.3 Presence of xenogenic heart valve; Z91.040 Latex allergy status; Z88.0 Allergy status to penicillin; Z88.8 Allergy status to other drugs, medicaments and biological substances; Z79.82 Long term (current) use of aspirin; Z79.899 Other long term (current) drug therapy; Z90.710 Acquired absence of both cervix and uterus; Z90.49 Acquired absence of other specified parts of digestive tract; Z98.42 Cataract extraction status, left eye; Z98.41 Cataract extraction status, right eye
CPT/HCPCS: 36415; 36416; 71045; 80048; 80053; 81003; 82274; 83735; 83880; 84439; 84443; 84484; 85025; 93005; 93010; 94760; 96374; 96375; 96376; 97139; G0378; J0360; J1940; J3475; U0002; U0003; U0005

== ENCOUNTER 2021-06-12 09:02 | Inpatient (IN) | payer MEDICARE, BC ==
[2021-06-12] MEDS ORDERED: Nitroglycerin 0.4 MG TAB 1 EACH ONE (09:28)
[2021-06-12] MEDS ORDERED: Furosemide 40 MG/4 ML VIAL ONE (10:04)
[2021-06-12 10:06] LABS: Actual Bicarbonate (HCO3v) 23 mEq/L (22-28); Base Excess 1.2 mEq/L (-2.0 to +3.0); Chloride (VBG) 92 mmol/L (98-106); Hemoglobin (Hb) 10.5 g/dL (11.7-16.1); Potassium (VBG) 4.42 mmol/L (3.70-5.30); Puncture Site Other Site; Sodium 122.6 mmol/L (133-146); pH (venous) 7.52 (7.32-7.43)
[2021-06-12 10:07] LABS: Hemoglobin 9.3 g/dL (12.0-15.5); Mean Corpuscular HGB CONC 32.1 g/dL (32.0-36.0); Mean Corpuscular Hemoglobin 26.1 pg (27.0-33.0); Mean Corpuscular Volume 81.5 fl (81.6-98.3); RBC Distribution Width 15.3 % (11.5-14.5); Red Blood Cell (RBC) Count 3.56 10x6/uL (3.90-5.03); White Blood Cell (WBC) Count 14.1 10x3/uL (3.5-10.5)
[2021-06-12 10:10] LABS: ALT (SGPT) 110 U/L (8-55); AST (SGOT) 66 U/L (5-34); Alkaline Phosphatase 116 U/L (40-110); Anion Gap 16 mmol/L (10-20); BUN (Urea Nitrogen) 27 mg/dL (9.8-20.1); Bilirubin, Total 0.9 mg/dL (0.2-1.2); Calc. Creatinine Clearance 0 mL/min (70-130); Calcium 8.5 mg/dL (7.8-10.44); Carbon Dioxide 23 mmol/L (23-31); Chloride 91 mmol/L (98-107); Globulin 2.8 g/dL (2.4-3.5); Glucose 140 mg/dL (83-110); Magnesium 1.9 mg/dL (1.6-2.6); Protein, Total 5.8 g/dL (5.8-8.1); Sodium 125 mmol/L (136-145)
[2021-06-12 10:26] LABS: MDiff Complete? YES; Mean Platelet Volume 9.1 fl (7.4-10.4)
[2021-06-12 10:29] LABS: Lymphocytes 5 % (21-51); Monocytes 10 % (0-10); Neutrophil 81 % (42-75); Reactive Lymphocytes 1 % (0-10)
[2021-06-12 10:30] LABS: Band 3 % (5-11)
[2021-06-12 10:31] LABS: Platelet Clumps MODERATE; Platelet Morphology Comment Appears Adequate
[2021-06-12 10:32] LABS: RBC Morphology Normal
[2021-06-12 10:33] LABS: Platelet Count 334 10x3/uL (150-450)
[2021-06-12] MEDS ORDERED: Apixaban 5 MG TAB ONE (11:10)
[2021-06-12] MEDS ORDERED: Nitroglycerin 2% Ointment 1 INCH/1 GM Packet ONE (11:11)
[2021-06-12] MEDS ORDERED: Sotalol HCl 80 MG TAB PO SCH (11:15)
[2021-06-12] MEDS ORDERED: Ondansetron ODT 4 MG TAB PO PRN (11:21)
[2021-06-12] MEDS ORDERED: Senokot S 8.6-50 MG TAB PO PRN (11:21)
[2021-06-12] MEDS ORDERED: Calcium Carbonate 500 MG ChewTAB PO PRN (11:21)
[2021-06-12 13:00] LABS: SARS-CoV-2 NAA Rapid Test Not Detected (NotDetected)
[2021-06-12] MEDS: Nitroglycerin 2% Ointment 1 INCH/1 GM Packet TOP SCH ×2 (13:00→22:26)
[2021-06-12] MEDS: Furosemide 40 MG/4 ML VIAL SLOW IVP SCH (16:26)
[2021-06-12 16:53] LABS: Bilirubin Neg (Negative); Blood, Urine Negative (Negative); Clarity Clear (Clear); Glucose, Urine (Dipstick) Normal (Negative); Ketone, Urine Negative (Negative); Leukocyte Negative (Negative); Nitrite Negative (Negative); Protein, Urine (Dipstick) Negative (Neg-Trace); Urobilinogen Normal mg/dL (Less than 2)
[2021-06-12 16:58] LABS: Bacteria/HPF None Seen HPF (None Seen); RBC/HPF 0-3 HPF (0-3); Squamous Epithelial 0-3 HPF (0-3); WBC/HPF 0-3 HPF (0-3)
[2021-06-12 17:16] LABS: Troponin I 0.013 ng/mL (< 0.028)
[2021-06-12] MEDS: Apixaban 2.5 MG TAB PO SCH (20:21)
[2021-06-12] MEDS: Atorvastatin Calcium 10 MG TAB PO SCH (20:22)
[2021-06-12] MEDS: Sotalol HCl 80 MG TAB PO SCH (20:22)
[2021-06-12] MEDS ORDERED: traZODone HCl 50 MG TAB PO SCH (21:00)
[2021-06-13 04:55] LABS: ALT (SGPT) 87 U/L (8-55); AST (SGOT) 53 U/L (5-34); Albumin 2.5 g/dL (3.4-4.8); Alkaline Phosphatase 94 U/L (40-110); Anion Gap 11 mmol/L (10-20); BUN (Urea Nitrogen) 16 mg/dL (9.8-20.1); Bilirubin, Total 0.9 mg/dL (0.2-1.2); Calc. Creatinine Clearance 49 mL/min (70-130); Calcium 8.2 mg/dL (7.8-10.44); Carbon Dioxide 27 mmol/L (23-31); Chloride 93 mmol/L (98-107); Globulin 2.9 g/dL (2.4-3.5); Glucose 130 mg/dL (83-110); Potassium 3.2 mmol/L (3.5-5.1); Protein, Total 5.4 g/dL (5.8-8.1); Sodium 128 mmol/L (136-145)
[2021-06-13] MEDS: Furosemide 40 MG/4 ML VIAL SLOW IVP SCH ×2 (05:55→15:51)
[2021-06-13] MEDS: Nitroglycerin 2% Ointment 1 INCH/1 GM Packet TOP SCH ×3 (06:07→21:15)
[2021-06-13 06:41] LABS: Hemoglobin 9.2 g/dL (12.0-15.5); Mean Corpuscular HGB CONC 31.8 g/dL (32.0-36.0); Mean Corpuscular Hemoglobin 25.9 pg (27.0-33.0); Mean Corpuscular Volume 81.4 fl (81.6-98.3); Platelet Count 292 10x3/uL (150-450); RBC Distribution Width 15.4 % (11.5-14.5); Red Blood Cell (RBC) Count 3.55 10x6/uL (3.90-5.03); White Blood Cell (WBC) Count 9.7 10x3/uL (3.5-10.5)
[2021-06-13 07:08] LABS: MDiff Complete? YES
[2021-06-13 08:00] LABS: Band 4 % (5-11); Eosinophils 2 % (0-10); Lymphocytes 8 % (21-51); Metamyelocyte 1 % (0-0); Monocytes 12 % (0-10); Myelocyte 1 % (0-0); Neutrophil 72 % (42-75); Platelet Clumps MODERATE
[2021-06-13 08:01] LABS: Platelet Morphology Comment Appears Adequate; RBC Morphology Normal
[2021-06-13] MEDS: Apixaban 2.5 MG TAB PO SCH ×2 (08:30→21:01)
[2021-06-13] MEDS: Sotalol HCl 80 MG TAB PO SCH ×2 (08:30→21:00)
[2021-06-13] MEDS: Thyroid 60 MG TAB PO SCH (08:31)
[2021-06-13] MEDS: Potassium Chloride 20 MEQ TAB PO SCH (08:32)
[2021-06-13] MEDS ORDERED: Potassium Chloride 20 MEQ TAB PO SCH (10:15)
[2021-06-13] MEDS ORDERED: Spironolactone 25 MG TAB PO SCH (11:00)
[2021-06-13 11:12] LABS: Magnesium 1.7 mg/dL (1.6-2.6)
[2021-06-13] MEDS: traZODone HCl 50 MG TAB PO SCH (21:00)
[2021-06-13] MEDS: Atorvastatin Calcium 10 MG TAB PO SCH (21:00)
[2021-06-14 04:50] LABS: #Basophils 0.1 10x3/uL (0.0-0.2); #Eosinphils 0.4 10x3/uL (0.0-0.5); #Neutrophils 6.9 10x3/uL (1.5-8.4); %Basophils 0.8 % (0.0-2.0); %Eosinophils 4.3 % (0.0-6.0); %Lymphocytes 8.4 % (18.0-47.0); %Monocytes 10.2 % (0.0-10.0); Hemoglobin 9.9 g/dL (12.0-15.5); Mean Corpuscular HGB CONC 31.5 g/dL (32.0-36.0); Mean Corpuscular Hemoglobin 26.1 pg (27.0-33.0); Mean Corpuscular Volume 82.6 fl (81.6-98.3); Mean Platelet Volume 10.6 fl (7.4-10.4); Platelet Count 296 10x3/uL (150-450); RBC Distribution Width 15.6 % (11.5-14.5); White Blood Cell (WBC) Count 9.6 10x3/uL (3.5-10.5)
[2021-06-14 05:11] LABS: Anion Gap 13 mmol/L (10-20); BUN (Urea Nitrogen) 14 mg/dL (9.8-20.1); Calc. Creatinine Clearance 53 mL/min (70-130); Calcium 8.2 mg/dL (7.8-10.44); Carbon Dioxide 26 mmol/L (23-31); Chloride 95 mmol/L (98-107); Glucose 128 mg/dL (83-110); Magnesium 1.7 mg/dL (1.6-2.6); Potassium 3.5 mmol/L (3.5-5.1); Sodium 130 mmol/L (136-145)
[2021-06-14] MEDS: Nitroglycerin 2% Ointment 1 INCH/1 GM Packet TOP SCH ×3 (06:01→19:52)
[2021-06-14] MEDS: Furosemide 40 MG/4 ML VIAL SLOW IVP SCH ×2 (06:18→14:57)
[2021-06-14] MEDS: Potassium Chloride 20 MEQ TAB PO SCH (09:13)
[2021-06-14] MEDS: Sotalol HCl 80 MG TAB PO SCH ×2 (09:13→19:58)
[2021-06-14] MEDS: Spironolactone 25 MG TAB PO SCH (09:15)
[2021-06-14] MEDS: Apixaban 2.5 MG TAB PO SCH ×2 (09:15→19:57)
[2021-06-14] MEDS: Fluticasone Propionate Nasal Spray 16 gm Bottle NASAL SCH (09:17)
[2021-06-14] MEDS: Thyroid 60 MG TAB PO SCH (09:24)
[2021-06-14] MEDS: Acetaminophen 325 MG TAB PO PRN (13:27)
[2021-06-14] MEDS: Atorvastatin Calcium 10 MG TAB PO SCH (19:57)
[2021-06-14] MEDS: traZODone HCl 50 MG TAB PO SCH (19:58)
[2021-06-15 05:41] LABS: #Basophils 0.1 10x3/uL (0.0-0.2); #Eosinphils 0.4 10x3/uL (0.0-0.5); #Neutrophils 5.9 10x3/uL (1.5-8.4); %Eosinophils 4.3 % (0.0-6.0); %Lymphocytes 8.5 % (18.0-47.0); %Monocytes 11.6 % (0.0-10.0); %Neutrophils 70.9 % (40.0-75.0); Hemoglobin 10.5 g/dL (12.0-15.5); Mean Corpuscular HGB CONC 32.1 g/dL (32.0-36.0); Mean Corpuscular Hemoglobin 26.3 pg (27.0-33.0); Mean Corpuscular Volume 81.8 fl (81.6-98.3); Mean Platelet Volume 10.3 fl (7.4-10.4); Platelet Count 317 10x3/uL (150-450); RBC Distribution Width 15.4 % (11.5-14.5); White Blood Cell (WBC) Count 8.4 10x3/uL (3.5-10.5)
[2021-06-15 05:53] LABS: Anion Gap 14 mmol/L (10-20); BUN (Urea Nitrogen) 16 mg/dL (9.8-20.1); Calc. Creatinine Clearance 49 mL/min (70-130); Calcium 8.5 mg/dL (7.8-10.44); Carbon Dioxide 28 mmol/L (23-31); Chloride 93 mmol/L (98-107); Glucose 130 mg/dL (83-110); Magnesium 1.7 mg/dL (1.6-2.6); Potassium 3.7 mmol/L (3.5-5.1); Sodium 131 mmol/L (136-145)
[2021-06-15] MEDS: Nitroglycerin 2% Ointment 1 INCH/1 GM Packet TOP SCH ×2 (06:00→14:54)
[2021-06-15] MEDS: Furosemide 40 MG/4 ML VIAL SLOW IVP SCH ×2 (06:43→14:40)
[2021-06-15] MEDS: Thyroid 60 MG TAB PO SCH (08:32)
[2021-06-15] MEDS: Fluticasone Propionate Nasal Spray 16 gm Bottle NASAL SCH (08:32)
[2021-06-15] MEDS: Spironolactone 25 MG TAB PO SCH (08:32)
[2021-06-15] MEDS: Sotalol HCl 80 MG TAB PO SCH ×2 (08:33→21:33)
[2021-06-15] MEDS: Apixaban 2.5 MG TAB PO SCH ×2 (08:33→21:34)
[2021-06-15] MEDS: Potassium Chloride 20 MEQ TAB PO SCH (08:33)
[2021-06-15] MEDS: Atorvastatin Calcium 10 MG TAB PO SCH (21:34)
[2021-06-15] MEDS: traZODone HCl 50 MG TAB PO SCH (21:34)
[2021-06-15] MEDS: Furosemide 40 MG TAB PO SCH (21:34)
[2021-06-16 04:41] LABS: #Basophils 0.1 10x3/uL (0.0-0.2); #Eosinphils 0.3 10x3/uL (0.0-0.5); #Monocytes 0.9 10x3/uL (0.0-1.1); #Neutrophils 4.8 10x3/uL (1.5-8.4); %Eosinophils 4.4 % (0.0-6.0); %Lymphocytes 11.9 % (18.0-47.0); %Monocytes 12.9 % (0.0-10.0); %Neutrophils 66.9 % (40.0-75.0); Mean Corpuscular HGB CONC 32.3 g/dL (32.0-36.0); Mean Corpuscular Hemoglobin 26.1 pg (27.0-33.0); Platelet Count 294 10x3/uL (150-450); RBC Distribution Width 15.5 % (11.5-14.5); Red Blood Cell (RBC) Count 4.21 10x6/uL (3.90-5.03); White Blood Cell (WBC) Count 7.2 10x3/uL (3.5-10.5)
[2021-06-16 04:44] LABS: Anion Gap 12 mmol/L (10-20); BUN (Urea Nitrogen) 16 mg/dL (9.8-20.1); Calc. Creatinine Clearance 46 mL/min (70-130); Calcium 8.5 mg/dL (7.8-10.44); Carbon Dioxide 27 mmol/L (23-31); Chloride 95 mmol/L (98-107); Glucose 123 mg/dL (83-110); Potassium 3.1 mmol/L (3.5-5.1); Sodium 131 mmol/L (136-145)
[2021-06-16] MEDS: Nitroglycerin 2% Ointment 1 INCH/1 GM Packet TOP SCH ×3 (07:03→21:02)
[2021-06-16] MEDS ORDERED: Electrolyte Replacement Protocol 1 EACH FS SCH (07:30)
[2021-06-16] MEDS ORDERED: Potassium Chloride 20 MEQ TAB PO SCH (07:30)
[2021-06-16] MEDS ORDERED: Magnesium Sulfate 2 GM in Sodium Chloride 0.9% 100 ML IVPB SCH (08:00)
[2021-06-16] MEDS ORDERED: Magnesium 2 GM/50 ML 2 GM in Premix Bag 1 BAG IVPB SCH (08:00)
[2021-06-16 08:44] LABS: Magnesium 1.7 mg/dL (1.6-2.6)
[2021-06-16] MEDS: Fluticasone Propionate Nasal Spray 16 gm Bottle NASAL SCH (08:45)
[2021-06-16] MEDS: Acetaminophen 325 MG TAB PO PRN (08:46)
[2021-06-16] MEDS: Potassium Chloride 20 MEQ TAB PO SCH (08:47)
[2021-06-16] MEDS: Thyroid 60 MG TAB PO SCH (08:47)
[2021-06-16] MEDS: Sotalol HCl 80 MG TAB PO SCH ×2 (08:47→21:02)
[2021-06-16] MEDS: Apixaban 2.5 MG TAB PO SCH ×2 (08:47→21:01)
[2021-06-16] MEDS: Spironolactone 25 MG TAB PO SCH (08:47)
[2021-06-16] MEDS: Furosemide 40 MG TAB PO SCH ×2 (08:47→21:02)
[2021-06-16] MEDS: Atorvastatin Calcium 10 MG TAB PO SCH (21:02)
[2021-06-17 04:37] LABS: Anion Gap 12 mmol/L (10-20); BUN (Urea Nitrogen) 22 mg/dL (9.8-20.1); Calc. Creatinine Clearance 40 mL/min (70-130); Calcium 8.3 mg/dL (7.8-10.44); Carbon Dioxide 27 mmol/L (23-31); Chloride 96 mmol/L (98-107); Glucose 125 mg/dL (83-110); Potassium 3.8 mmol/L (3.5-5.1); Sodium 131 mmol/L (136-145)
[2021-06-17 04:58] VITALS: BMI 17.9
[2021-06-17] MEDS ORDERED: Magnesium 2 GM/50 ML 2 GM in Premix Bag 1 BAG IVPB SCH (06:00)
[2021-06-17] MEDS: Nitroglycerin 2% Ointment 1 INCH/1 GM Packet TOP SCH ×2 (07:23→14:13)
[2021-06-17] MEDS: traZODone HCl 50 MG TAB PO SCH (07:23)
[2021-06-17] MEDS: Thyroid 60 MG TAB PO SCH (08:14)
[2021-06-17] MEDS: Furosemide 40 MG TAB PO SCH (08:14)
[2021-06-17] MEDS: Sotalol HCl 80 MG TAB PO SCH (08:14)
[2021-06-17] MEDS: Potassium Chloride 20 MEQ TAB PO SCH (08:15)
[2021-06-17] MEDS: Apixaban 2.5 MG TAB PO SCH (08:15)
[2021-06-17] MEDS: Fluticasone Propionate Nasal Spray 16 gm Bottle NASAL SCH (08:15)
[2021-06-17] MEDS: Spironolactone 25 MG TAB PO SCH (08:15)
[2021-06-17] MEDS ORDERED: Magnesium Oxide 400 MG TAB PO SCH (09:00)
[2021-06-17 12:52] VITALS: TEMP 97.3
[2021-06-17 14:52] VITALS: BP 142/50
== END 2021-06-17 16:21 | DRG 291 ==
LOC: CSHERS 09:02 → INTOOBSV 13:05 → CSHTELE 13:05 → INTOOBSV 13:23 → OBSVTOIN 13:23 → CSHTELE 14:06 → OBSVTOIN 06-13 13:23
PROVIDERS: ADMIT Family Medicine; ATTEND Internal Medicine
DX: I11.0 Hypertensive heart disease with heart failure (principal); I50.43 Acute on chronic combined systolic (congestive) and diastolic (congestive) heart failure; E87.1 Hypo-osmolality and hyponatremia; I48.20 Chronic atrial fibrillation, unspecified; R74.01 Elevation of levels of liver transaminase levels; R30.0 Dysuria; R91.1 Solitary pulmonary nodule; R53.81 Other malaise; E11.9 Type 2 diabetes mellitus without complications; D64.9 Anemia, unspecified; F32.A Depression, unspecified; E78.5 Hyperlipidemia, unspecified; M19.90 Unspecified osteoarthritis, unspecified site; F03.90 Unspecified dementia, unspecified severity, without behavioral disturbance, psychotic disturbance, mood disturbance, and anxiety; E03.9 Hypothyroidism, unspecified; I16.0 Hypertensive urgency; Z20.822 Contact with and (suspected) exposure to COVID-19; E87.6 Hypokalemia; Z95.2 Presence of prosthetic heart valve; Z95.0 Presence of cardiac pacemaker; Z85.850 Personal history of malignant neoplasm of thyroid; Z88.0 Allergy status to penicillin; Z91.040 Latex allergy status; Z88.8 Allergy status to other drugs, medicaments and biological substances; Z79.01 Long term (current) use of anticoagulants; Z79.899 Other long term (current) drug therapy; Z90.89 Acquired absence of other organs; Z90.49 Acquired absence of other specified parts of digestive tract; Z90.710 Acquired absence of both cervix and uterus; Z79.82 Long term (current) use of aspirin; Z88.2 Allergy status to sulfonamides; Z88.1 Allergy status to other antibiotic agents
CPT/HCPCS: 36415; 71045; 80048; 80053; 81001; 82805; 83735; 83880; 84484; 85025; 93005; 96374; 96376; G0378; J1940; J3475; U0002

== ENCOUNTER 2021-10-16 12:34 | Emergency (ER) | payer MEDICARE, BC ==
[~2021-10-16 12:34] MED LIST: Iopamidol 300 61% 100 ML VIAL FS ONE
[2021-10-16 14:36] LABS: #Monocytes 1.5 10x3/uL (0.0-1.1); #Neutrophils 7.4 10x3/uL (1.5-8.4); %Basophils 0.3 % (0.0-2.0); %Eosinophils 0.3 % (0.0-6.0); %Lymphocytes 12.3 % (18.0-47.0); %Monocytes 14.3 % (0.0-10.0); %Neutrophils 71.5 % (40.0-75.0); Hemoglobin 12.2 g/dL (12.0-15.5); Mean Corpuscular HGB CONC 32.1 g/dL (32.0-36.0); Mean Corpuscular Hemoglobin 26.5 pg (27.0-33.0); Mean Corpuscular Volume 82.4 fl (81.6-98.3); RBC Distribution Width 15.8 % (11.5-14.5); Red Blood Cell (RBC) Count 4.61 10x6/uL (3.90-5.03); White Blood Cell (WBC) Count 10.3 10x3/uL (3.5-10.5)
[2021-10-16] MEDS ORDERED: Dicyclomine 20 MG/2 ML VIAL ONE (14:44)
[2021-10-16] MEDS ORDERED: Cefepime 2 GM VIAL ONE (14:44)
[2021-10-16 14:46] LABS: CK (CPK) 25 U/L (29-168); Lipase 16 U/L (8-78)
[2021-10-16 14:58] LABS: Mean Platelet Volume 10.8 fl (7.4-10.4); Platelet Count 184 10x3/uL (150-450)
[2021-10-16 16:13] LABS: Bilirubin Neg (Negative); Blood, Urine Negative (Negative); Clarity Clear (Clear); Glucose, Urine (Dipstick) Normal (Negative); Ketone, Urine Negative (Negative); Leukocyte Negative (Negative); Nitrite Negative (Negative); Protein, Urine (Dipstick) Negative (Neg-Trace); Specific Gravity, Urine 1.005 (1.002-1.036); Urobilinogen Normal mg/dL (Less than 2)
[2021-10-16 16:31] LABS: ALT (SGPT) 36 U/L (8-55); AST (SGOT) 27 U/L (5-34); Albumin 3.6 g/dL (3.4-4.8); Alkaline Phosphatase 129 U/L (40-110); Anion Gap 16 mmol/L (10-20); BUN (Urea Nitrogen) 51 mg/dL (9.8-20.1); Bilirubin, Total 0.4 mg/dL (0.2-1.2); Calc. Creatinine Clearance 0 mL/min (70-130); Calcium 9.5 mg/dL (7.8-10.44); Carbon Dioxide 21 mmol/L (23-31); Chloride 100 mmol/L (98-107); Globulin 3.2 g/dL (2.4-3.5); Glucose 130 mg/dL (83-110); Potassium 4.6 mmol/L (3.5-5.1); Protein, Total 6.8 g/dL (5.8-8.1); Sodium 132 mmol/L (136-145)
[2021-10-16] MEDS ORDERED: Lorazepam 2 MG/ML VIAL ONE (19:35)
[2021-10-16 21:01] LABS: Troponin I 0.023 ng/mL (< 0.028)
== END 2021-10-16 21:57 | disposition short-term general hospital (02) ==
LOC: CSHERS 12:34
DX: R10.9 Unspecified abdominal pain (principal); R00.0 Tachycardia, unspecified; E11.22 Type 2 diabetes mellitus with diabetic chronic kidney disease; I13.0 Hypertensive heart and chronic kidney disease with heart failure and stage 1 through stage 4 chronic kidney disease, or unspecified chronic kidney disease; N18.9 Chronic kidney disease, unspecified; I50.9 Heart failure, unspecified; E03.9 Hypothyroidism, unspecified; E78.5 Hyperlipidemia, unspecified
CPT/HCPCS: 36415; 71045; 74177; 80053; 81003; 82550; 83605; 83690; 83880; 84443; 84484; 85025; 87040; 87086; 93005; 96365; 96372; 96375; J0500; J0692; J2060; J3370; Q9967

== ENCOUNTER 2021-12-09 10:38 | Observation (INO) | payer MEDICARE, BC ==
[2021-12-09 11:56] LABS: #Basophils 0.1 10x3/uL (0.0-0.2); #Monocytes 0.8 10x3/uL (0.0-1.1); #Neutrophils 8.2 10x3/uL (1.5-8.4); %Basophils 0.5 % (0.0-2.0); %Eosinophils 0.4 % (0.0-6.0); %Lymphocytes 6.5 % (18.0-47.0); %Monocytes 7.9 % (0.0-10.0); %Neutrophils 79.9 % (40.0-75.0); Hemoglobin 10.6 g/dL (12.0-15.5); Mean Corpuscular HGB CONC 34.1 g/dL (32.0-36.0); Mean Corpuscular Hemoglobin 26.9 pg (27.0-33.0); Mean Corpuscular Volume 78.9 fl (81.6-98.3); Mean Platelet Volume 12.4 fl (7.4-10.4); Platelet Count 113 10x3/uL (150-450); RBC Distribution Width 16.4 % (11.5-14.5); Red Blood Cell (RBC) Count 3.94 10x6/uL (3.90-5.03); White Blood Cell (WBC) Count 10.3 10x3/uL (3.5-10.5)
[2021-12-09 12:13] LABS: ALT (SGPT) 39 U/L (8-55); AST (SGOT) 26 U/L (5-34); Albumin 2.9 g/dL (3.4-4.8); Alkaline Phosphatase 111 U/L (40-110); Anion Gap 16 mmol/L (10-20); BUN (Urea Nitrogen) 26 mg/dL (9.8-20.1); Bilirubin, Total 0.6 mg/dL (0.2-1.2); Calc. Creatinine Clearance 0 mL/min (70-130); Calcium 8.5 mg/dL (7.8-10.44); Carbon Dioxide 23 mmol/L (23-31); Chloride 93 mmol/L (98-107); Estimated GFR 85; Globulin 2.9 g/dL (2.4-3.5); Glucose 206 mg/dL (83-110); Potassium 4.5 mmol/L (3.5-5.1); Protein, Total 5.8 g/dL (5.8-8.1); Sodium 127 mmol/L (136-145)
[2021-12-09 13:07] LABS: Bilirubin Neg (Negative); Blood, Urine Negative (Negative); Clarity Clear (Clear); Glucose, Urine (Dipstick) Normal (Negative); Ketone, Urine Negative (Negative); Leukocyte Negative (Negative); Nitrite Negative (Negative); Protein, Urine (Dipstick) Negative (Neg-Trace); Urobilinogen Normal mg/dL (Less than 2)
[2021-12-09] MEDS ORDERED: Ondansetron ODT 4 MG TAB PO PRN (15:06)
[2021-12-09] MEDS ORDERED: Ondansetron PF 4 MG/2 ML Vial IVP PRN (15:06)
[2021-12-09] MEDS ORDERED: Acetaminophen 325 MG TAB PO PRN (15:06)
[2021-12-09] MEDS ORDERED: Sodium Chloride 0.9% 1,000 ML IV SCH (15:15)
[2021-12-09 15:54] LABS: SARS-CoV-2 NAA Rapid Test Not Detected (NotDetected)
[2021-12-09 16:49] VITALS: BMI 20.9
[2021-12-10 06:14] LABS: Anion Gap 14 mmol/L (10-20); BUN (Urea Nitrogen) 16 mg/dL (9.8-20.1); Calc. Creatinine Clearance 50 mL/min (70-130); Calcium 9.2 mg/dL (7.8-10.44); Carbon Dioxide 24 mmol/L (23-31); Chloride 97 mmol/L (98-107); Estimated GFR 87; Glucose 142 mg/dL (83-110); Sodium 131 mmol/L (136-145)
[2021-12-10 08:03] LABS: Hemoglobin 10.6 g/dL (12.0-15.5); Mean Corpuscular Hemoglobin 26.8 pg (27.0-33.0); Platelet Count 143 10x3/uL (150-450); RBC Distribution Width 16.7 % (11.5-14.5); Red Blood Cell (RBC) Count 3.95 10x6/uL (3.90-5.03); White Blood Cell (WBC) Count 9.7 10x3/uL (3.5-10.5)
[2021-12-10] MEDS ORDERED: Sodium Chloride 1 GM TAB PO SCH (09:00)
[2021-12-10 10:35] LABS: MDiff Complete? YES; Manual Diff?? YES
[2021-12-10 11:29] LABS: Band 15 % (5-11); Lymphocytes 4 % (21-51); Metamyelocyte 1 % (0-0); Monocytes 9 % (0-10); Neutrophil 70 % (42-75); Reactive Lymphocytes 1 % (0-10)
[2021-12-10 11:30] LABS: Anisocytosis SLIGHT = 6-15 cells (100X) (0-5/hpf); Macrocytosis SLIGHT = 6-15 cells (100X) (0-5/hpf); Microcytosis SLIGHT = 6-15 cells (100X) (0-5/hpf); Platelet Morphology Comment Appears Adequate
[2021-12-10 16:58] VITALS: BP 182/74; TEMP 97.8
[2021-12-10] MEDS ORDERED: Icosapent Ethyl 1 GM CAPSULE PO SCH (17:00)
[2021-12-10] MEDS ORDERED: Melatonin 3 MG TAB PO SCH (21:00)
[2021-12-10] MEDS ORDERED: Atorvastatin Calcium 10 MG TAB PO SCH (21:00)
[2021-12-10] MEDS ORDERED: Magnesium Glycinate 100 MG Tablet PO SCH (21:00)
[2021-12-10] MEDS ORDERED: Apixaban 2.5 MG TAB PO SCH (21:00)
[2021-12-10] MEDS ORDERED: hydrOXYzine Pamoate 25 mg Capsule PO SCH (21:00)
[2021-12-11] MEDS ORDERED: Spironolactone 25 MG TAB PO SCH (08:00)
[2021-12-11] MEDS ORDERED: Thyroid 30 MG TAB PO SCH (09:00)
[2021-12-11] MEDS ORDERED: Multivit, Therapeutic 1 TAB PO SCH (09:00)
[2021-12-11] MEDS ORDERED: Polyethylene Glycol 3350 17 GM Packet PO SCH (09:00)
[2021-12-17] MEDS ORDERED: BUPRENORPHINE 10 MCG/HR TOP SCH (09:00)
== END 2021-12-10 19:00 ==
LOC: CSHERS 10:38 → CSHTELE 15:47
PROVIDERS: ADMIT Hospitalist; ATTEND Family Medicine
DX: E87.1 Hypo-osmolality and hyponatremia (principal); R41.0 Disorientation, unspecified; F03.90 Unspecified dementia, unspecified severity, without behavioral disturbance, psychotic disturbance, mood disturbance, and anxiety; G93.40 Encephalopathy, unspecified; I13.0 Hypertensive heart and chronic kidney disease with heart failure and stage 1 through stage 4 chronic kidney disease, or unspecified chronic kidney disease; I50.9 Heart failure, unspecified; E11.22 Type 2 diabetes mellitus with diabetic chronic kidney disease; N18.2 Chronic kidney disease, stage 2 (mild); I48.91 Unspecified atrial fibrillation; E89.0 Postprocedural hypothyroidism; M19.90 Unspecified osteoarthritis, unspecified site; M48.00 Spinal stenosis, site unspecified; Z86.79 Personal history of other diseases of the circulatory system; Z87.440 Personal history of urinary (tract) infections; Z85.850 Personal history of malignant neoplasm of thyroid; Z20.822 Contact with and (suspected) exposure to COVID-19; Z79.01 Long term (current) use of anticoagulants; Z79.899 Other long term (current) drug therapy; Z88.0 Allergy status to penicillin; Z88.2 Allergy status to sulfonamides; Z91.040 Latex allergy status; Z95.0 Presence of cardiac pacemaker; Z95.2 Presence of prosthetic heart valve
CPT/HCPCS: 71045; 80048; 80061; 81003; 83880; 83930; 83935; 84300; 84484; 85025; 87086; 96360; 96361; 99285; U0002; 80053; 84443; G0378